=== PATIENT | male | born 1970 | race Caucasian/White ===

== ENCOUNTER → 2016-07-29 | Outpatient (CLI) | payer OTHER ==
--- NOTE | 2016-07-29 11:56 | XR ---
EXAMINATION TYPE: XR hand complete RT DATE OF EXAM: 07/29/2016 CLINICAL HISTORY: Foreign body hand over fifth digit recently removed TECHNIQUE: Frontal, lateral and oblique images of the right hand are obtained. COMPARISON: None. FINDINGS: There is no acute fracture/dislocation evident in the right hand. The joint spaces in the right hand appear within normal limits. The overlying soft tissue appears unremarkable without suspi cious radiodense foreign body identified. IMPRESSION: Unremarkable study.
== END | disposition home or self-care (01) ==
LOC: RADXRMAIN 11:35
PROVIDERS: ATTEND Emergency Medicine
DX: S60.551A Superficial foreign body of right hand, initial encounter (principal)

== ENCOUNTER → 2019-12-06 | Outpatient (CLI) | payer BC ==
--- NOTE | 2019-12-06 12:25 | XR ---
EXAMINATION TYPE: XR lumbar spine 2 or 3V DATE OF EXAM: 12/06/2019 COMPARISON: None HISTORY: Low back pain TECHNIQUE: Three-view lumbar spine FINDINGS: There 5 lumbar-type vertebral bodies. Pedicles are intact. There is loss of disc height L5- S1. Remaining disc heights are preserved. Vertebral body heights are preserved. Vascular calcificatio ns within the distal aorta. IMPRESSION: 1. Degenerative disc changes L5-S1
== END | disposition home or self-care (01) ==
LOC: RADXRMAIN 11:23
PROVIDERS: ATTEND Emergency Medicine
DX: M47.817 Spondylosis without myelopathy or radiculopathy, lumbosacral region (principal)
CPT/HCPCS: 72100

== ENCOUNTER 2020-11-26 06:19 | Inpatient (IN) | payer BC, OTHER ==
[2020-11-26] MEDS ORDERED: LORazepam 2 MG/ML INJ IV STA (06:45)
[2020-11-26] MEDS ORDERED: SODIUM CHLORIDE 0.9% 1,000 ML IV STA ×2 (06:45→08:15)
--- NOTE | 2020-11-26 06:48 | ED ---
General Adult HPI - General Chief complaint: Altered Mental Status Stated complaint: Altered mental status Time Seen by Provider: 11/26/20 06:33 Source: patient, RN notes reviewed Mode of arrival: ambulatory Limitations: no limitations - History of Present Illness Initial comments: 50-year-old male with a past medical history of hypertension presents to the emergency room for a chief complaint of confusion. reports she woke up this morning and patient was telling her he was mad because she had been whispering about him to someone. states that he was confused which is not normal for him. 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 States that he usually drinks 12-15 beers a day however since Tuesday has stopped drinking because of this new job. She states that he has not been urinating normally and it is much less than normal. She states she has also had a cough and cold. He has been diaphoretic. He has not been eating or drinking. Patient is alert and oriented. Patient has no other complaints at this time including shortness of breath, chest pain, abdominal pain, nausea or vomiting, headache, or visual changes. - Related Data Allergies Allergy/AdvReac Type Severity Reaction Status Date / Time No Known Allergies Allergy Verified 11/26/20 06:32 Review of Systems ROS Statement: Those systems with pertinent positive or pertinent negative responses have been documented in the HPI. ROS Other: All systems not noted in ROS Statement are negative. Past Medical History Past Medical History: Hypertension Additional Past Medical History / Comment(s): PVC History of Any Multi-Drug Resistant Organisms: None Reported Past Surgical History: No Surgical Hx Reported Past Psychological History: No Psychological Hx Reported Smoking Status: Never smoker Past Alcohol Use History: Daily, Heavy Past Drug Use History: None Reported General Exam Limitations: no limitations General appearance: alert, in no apparent distress Head exam: Present: atraumatic Eye exam: Present: normal appearance, PERRL, EOMI. Absent: scleral icterus, conjunctival injection ENT exam: Present: normal exam, mucous membranes moist Neck exam: Present: normal inspection, full ROM. Absent: tenderness Respiratory exam: Present: normal lung sounds bilaterally. Absent: respiratory distress, wheezes Cardiovascular Exam: Present: regular rate, normal rhythm, normal heart sounds GI/Abdominal exam: Present: soft, normal bowel sounds. Absent: distended, tenderness Skin exam: Present: diaphoretic Course Vital Signs 11/26/20 06:22 Temperature 98.7 F Pulse Rate 98 Respiratory 18 Rate Blood Pressure 145/102 O2 Sat by Pulse 98 Oximetry EKG Findings - EKG Comments: EKG Findings:: Normal sinus rhythm, ventricular rate 82, MN interval 140, QTC 434 Medical Decision Making - Medical Decision Making Vitals are stable. Patient is well-appearing however is diaphoretic. He is alert and oriented although slow to answer questions. CBC is unremarkable. CMP does reveal mild acidosis likely related to alcoholic ketosis. Magnesium 1.5, replaced. Patient started on CIWA protocol. Suspect that patient's delirium is related to alcohol withdrawal syndrome. Patient will need to be admitted. Case was discussed with Dr. amato who accepts admission. - Lab Data Result diagrams: 11/26/20 06:52 11/26/20 06:52 Lab Results 11/26/20 11/26/20 11/26/20 Range/Units 06:52 06:52 06:52 WBC 9.4 (3.8-10.6) k/uL RBC 4.27 L (4.30-5.90) m/uL Hgb 14.6 (13.0-17.5) gm/dL Hct 41.0 (39.0-53.0) % MCV 96.1 (80.0-100.0) fL MCH 34.1 (25.0-35.0) pg MCHC 35.5 (31.0-37.0) g/dL RDW 13.0 (11.5-15.5) % Plt Count 194 (150-450) k/uL MPV 7.7 Neutrophils % 70 % Lymphocytes % 18 % Monocytes % 8 % Eosinophils % 1 % Basophils % 1 % Neutrophils # 6.6 (1.3-7.7) k/uL Lymphocytes # 1.7 (1.0-4.8) k/uL Monocytes # 0.8 (0-1.0) k/uL Eosinophils # 0.1 (0-0.7) k/uL Basophils # 0.1 (0-0.2) k/uL Sodium 134 L (137-145) mmol/L Potassium 3.6 (3.5-5.1) mmol/L Chloride 100 (98-107) mmol/L Carbon Dioxide 19 L (22-30) mmol/L Anion Gap 15 mmol/L BUN 7 L (9-20) mg/dL Creatinine 0.78 (0.66-1.25) mg/dL Est GFR (CKD-EPI)AfAm >90 (>60 ml/min/1.73 sqM) Est GFR (CKD-EPI)NonAf >90 (>60 ml/min/1.73 sqM) Glucose 113 H (74-99) mg/dL Calcium 9.8 (8.4-10.2) mg/dL Magnesium 1.5 L (1.6-2.3) mg/dL Total Bilirubin 1.5 H (0.2-1.3) mg/dL AST 87 H (17-59) U/L ALT 38 (4-49) U/L Alkaline Phosphatase 42 (38-126) U/L Total Protein 8.4 H (6.3-8.2) g/dL Albumin 4.9 (3.5-5.0) g/dL Serum Alcohol <10 mg/dL Coronavirus (PCR) Not Detected (Not Detectd) Disposition Clinical Impression: Alcohol withdrawal syndrome, Delirium tremens, Hypomagnesemia Disposition: ADMITTED IP TO THIS HOSP Is patient prescribed a controlled substance at d/c from ED?: No Referrals: Nargis Modi III, MD [Primary Care Provider] - 1-2 days Time of Disposition: 08:12
[2020-11-26 07:05] LABS: Basophils # (A) 0.1 k/uL (0-0.2); Basophils % (A) 1 %; Eosinophils # (A) 0.1 k/uL (0-0.7); Eosinophils % (A) 1 %; HGB 14.6 gm/dL (13.0-17.5); Lymphocytes # (A) 1.7 k/uL (1.0-4.8); Lymphocytes % (A) 18 %; MCH 34.1 pg (25.0-35.0); MCHC 35.5 g/dL (31.0-37.0); MCV 96.1 fL (80.0-100.0); Mean Platelet Volume 7.7; Monocytes # (A) 0.8 k/uL (0-1.0); Monocytes % (A) 8 %; Neutrophils # (A) 6.6 k/uL (1.3-7.7); Neutrophils % (A) 70 %; Platelet Count 194 k/uL (150-450); RBC 4.27 m/uL (4.30-5.90); WBC 9.4 k/uL (3.8-10.6)
[2020-11-26 07:46] LABS: ALT 38 U/L (4-49); AST 87 U/L (17-59); African American GFR (CKD) >90 (>60 ml/min/1.73 sqM); Albumin 4.9 g/dL (3.5-5.0); Alcohol <10 mg/dL; Alkaline Phosphatase 42 U/L (38-126); Anion Gap 15 mmol/L; Blood Urea Nitrogen 7 mg/dL (9-20); Calcium 9.8 mg/dL (8.4-10.2); Carbon Dioxide 19 mmol/L (22-30); Chloride 100 mmol/L (98-107); Glucose 113 mg/dL (74-99); Magnesium 1.5 mg/dL (1.6-2.3); Non-African American GFR(CKD) >90 (>60 ml/min/1.73 sqM); Potassium 3.6 mmol/L (3.5-5.1); Sodium 134 mmol/L (137-145); Total Bilirubin 1.5 mg/dL (0.2-1.3); Total Protein 8.4 g/dL (6.3-8.2)
--- NOTE | 2020-11-26 07:49 | CT ---
EXAMINATION TYPE: CT brain wo con DATE OF EXAM: 11/26/2020 COMPARISON: None INDICATION: AMS DLP: 1119.4 mGycm, Automated exposure control for dose reduction was used. CONTRAST: None CT of the brain is performed utilizing 3 mm thick sections through the posterior fossa and 3 mm thick sections through the remaining calvarium. Study is performed within 24 hours of arrival to the hosp ital. No abnormal hyperdensity is present to suggest an acute intracranial hemorrhage. No mass lesion is evident. No acute infarcts are evident. Ventricles and sulci are appropriate for the patient age. There is an air-fluid level within the right maxillary sinus. Correlate for acute maxillary sinusitis . Left septal deviation is noted. Some mucosal thickening through scattered ethmoid air cells. Remain ing paranasal sinuses and mastoid air cells are clear. There is a soft tissue nodule in the subcutane ous tissues on the superior right vertex measuring 2.8 cm. This contains calcification. An additional nodule within the posterior mid subcutaneous tissue. IMPRESSIONS: 1. No acute intracranial process. 2. Subcutaneous nodules
--- NOTE | 2020-11-26 07:54 | XR ---
EXAMINATION TYPE: XR chest 2V DATE OF EXAM: 11/26/2020 COMPARISON: 09/12/2012 INDICATION: Cough TECHNIQUE: Frontal and lateral views of the chest are obtained. FINDINGS: The heart size is normal. The pulmonary vasculature is normal. The lungs are clear. There is some mild prominence of the small bowel loops within the abdomen. Reg elate for ileus. IMPRESSION: 1. No acute pulmonary process. 2. Consider ileus within the abdomen.
[2020-11-26] MEDS ORDERED: NALOXONE 0.4 MG/ML 1 ML VIAL IV PRN (08:12)
[2020-11-26] MEDS ORDERED: SODIUM CHLORIDE 0.9% 1,000 ML with MVI, ADULT NO.4 WITH VIT K 10 ML, THIAMINE 100 MG, F... IV ONE ×4 (08:13)
[2020-11-26] MEDS ORDERED: LORazepam 2 MG/ML INJ IV PRN ×3 (08:14)
[2020-11-26] MEDS ORDERED: SODIUM CHLORIDE 0.9% 1,000 ML IV SCH (08:15)
[2020-11-26] MEDS ORDERED: MAGNESIUM SULFATE-D5W PMX 1 GM in DEXTROSE/WATER 1 100ML.BAG IVPB STA (08:19)
[2020-11-26] MEDS ORDERED: MAGNESIUM SULFATE-D5W PMX 1 GM in DEXTROSE/WATER 1 100ML.BAG IVPB SCH (11:30)
[2020-11-26 13:14] VITALS: RESP 23
--- NOTE | 2020-11-26 13:28 | P.HPIM ---
History of Present Illness 50-year-old pleasant male came in with the alcohol withdrawal symptoms and patient was having hallucinations last night as per the sink staff. Patient was drinking about 12-15 beers however he stopped on Tuesday. Patient was bit anx ious lately because of lack of job for a long time and because of which he has been drinking. Patient is sitting at the Because of which patient quit drinking. Patient the didn't have any withdrawal symptoms since today morning at 6:30 AM patient received the last dose of Ativan at 6:30 AM. Patient is also hypomagnesemic magnesium was replaced and patient will be discharged on magnesium supplementation. REVIEW OF SYSTEMS: CONSTITUTIONAL: No fever, no malaise, no fatigue. HEENT: No recent visual problems or hearing problems. Denied any sore throat. CARDIOVASCULAR: No chest pain, orthopnea, PND, no palpitations, no syncope. PULMONARY: No shortness of breath, no cough, no hemoptysis. GASTROINTESTINAL: No diarrhea, no nausea, no vomiting, no abdominal pain. NEUROLOGICAL: No headaches, no weakness, no numbness. HEMATOLOGICAL: Denies any bleeding or petechiae. GENITOURINARY: Denies any burning micturition, frequency, or urgency. MUSCULOSKELETAL/RHEUMATOLOGICAL: Denies any joint pain, swelling, or any muscle pain. ENDOCRINE: Denies any polyuria or polydipsia. The rest of the 14-point review of systems is negative. PHYSICAL EXAMINATION: GENERAL: The patient is alert and oriented x3, not in any acute distress. Well developed, well nourished. HEENT: Pupils are round and equally reacting to light. EOMI. No scleral icterus. No conjunctival pallor. Normocephalic, atraumatic. No pharyngeal erythema. No thyromegaly. CARDIOVASCULAR: S1 and S2 present. No murmurs, rubs, or gallops. PULMONARY: Chest is clear to auscultation, no wheezing or crackles. ABDOMEN: Soft, nontender, nondistended, normoactive bowel sounds. No palpable organomegaly. MUSCULOSKELETAL: No joint swelling or deformity. EXTREMITIES: No cyanosis, clubbing, or pedal edema. NEUROLOGICAL: Gross neurological examination did not reveal any focal deficits. SKIN: No rashes. Assessment and plan Alcohol withdrawal: Patient last drink was about 3 days ago and do not expect any worsening withdrawals at this time. Patient Ativan requirements are not frequent patient will be discharged on as needed Ativan for alcohol withdrawal. -Hypovolemic hyponatremia patient received IV fluids -Hyperchloremic metabolic acidosis, there may be a competent of lactic acidosis as well patient received IV fluids as mentioned above -Mild acute alcoholic hepatitis -Incidental finding of the subcutaneous nodule on the computed tomography scan of the head no further intervention at this time. Past Medical History Past Medical History: Hypertension Additional Past Medical History / Comment(s): PVC History of Any Multi-Drug Resistant Organisms: None Reported Past Surgical History: No Surgical Hx Reported Past Psychological History: No Psychological Hx Reported Smoking Status: Never smoker Past Alcohol Use History: Daily, Heavy Past Drug Use History: None Reported Medications and Allergies Home Medications Medication Instructions Recorded Confirmed Type Atenolol [Tenormin] 100 mg PO DAILY 11/26/20 11/26/20 History LORazepam [Ativan] 1 mg PO QID PRN 3 Days #20 tab 11/26/20 Rx Lisinopril [Prinivil] 10 mg PO DAILY 11/26/20 11/26/20 History Magnesium Oxide [Mag-Oxide] 400 mg PO DAILY #20 tablet 11/26/20 Rx Omeprazole Magnesium [PriLOSEC OTC] 20 mg PO DAILY 11/26/20 11/26/20 History Simvastatin 40 mg PO DAILY 11/26/20 11/26/20 History Thiamine [Vitamin B-1] 100 mg PO BID-W/MEALS #30 tab 11/26/20 Rx Venlafaxine HCl [Effexor XR] 75 mg PO DAILY 11/26/20 11/26/20 History Allergies Allergy/AdvReac Type Severity Reaction Status Date / Time No Known Allergies Allergy Verified 11/26/20 09:35 Physical Exam Vitals: Vital Signs Temp Pulse Resp BP Pulse Ox 11/26/20 12:00 81 23 146/100 98 11/26/20 11:00 88 19 128/88 97 11/26/20 10:00 72 11 L 144/89 97 11/26/20 08:48 83 18 143/101 98 11/26/20 08:00 84 10 L 141/96 95 11/26/20 06:22 98.7 F 98 18 145/102 98 Intake and Output 11/25/20 11/26/20 11/26/20 22:59 06:59 14:59 Other: Weight 104.326 kg Results CBC & Chem 7: 11/26/20 06:52 11/26/20 06:52 Labs: Abnormal Lab Results - Last 24 Hours (Table) 11/26/20 11/26/20 Range/Units 06:52 06:52 RBC 4.27 L (4.30-5.90) m/uL Sodium 134 L (137-145) mmol/L Carbon Dioxide 19 L (22-30) mmol/L BUN 7 L (9-20) mg/dL Glucose 113 H (74-99) mg/dL Magnesium 1.5 L (1.6-2.3) mg/dL Total Bilirubin 1.5 H (0.2-1.3) mg/dL AST 87 H (17-59) U/L Total Protein 8.4 H (6.3-8.2) g/dL
--- NOTE | 2020-11-26 13:29 | P.DS ---
Providers Date of admission: 11/26/20 08:51 Attending physician: Papi Ardon MD Primary care physician: Nargis Modi [facility] Course: Refer to my history of present illness for further details Plan - Discharge Summary New Discharge Prescriptions: New LORazepam [Ativan] 1 mg PO QID PRN 3 Days #20 tab PRN Reason: Alcohol Withdrawal Magnesium Oxide [Mag-Oxide] 400 mg PO DAILY #20 tablet Thiamine [Vitamin B-1] 100 mg PO BID-W/MEALS #30 tab Continue Venlafaxine HCl [Effexor XR] 75 mg PO DAILY Lisinopril [Prinivil] 10 mg PO DAILY Atenolol [Tenormin] 100 mg PO DAILY Simvastatin 40 mg PO DAILY Omeprazole Magnesium [PriLOSEC OTC] 20 mg PO DAILY Discharge Medication List Atenolol [Tenormin] 100 mg PO DAILY 11/26/20 [History] LORazepam [Ativan] 1 mg PO QID PRN 3 Days #20 tab 11/26/20 [Rx] Lisinopril [Prinivil] 10 mg PO DAILY 11/26/20 [History] Magnesium Oxide [Mag-Oxide] 400 mg PO DAILY #20 tablet 11/26/20 [Rx] Omeprazole Magnesium [PriLOSEC OTC] 20 mg PO DAILY 11/26/20 [History] Simvastatin 40 mg PO DAILY 11/26/20 [History] Thiamine [Vitamin B-1] 100 mg PO BID-W/MEALS #30 tab 11/26/20 [Rx] Venlafaxine HCl [Effexor XR] 75 mg PO DAILY 11/26/20 [History] Follow up Appointment(s)/Referral(s): Nargis Modi III, MD [Primary Care Provider] - 3 Days Discharge Disposition: HOME SELF-CARE
[2020-11-26 14:11] VITALS: BP 150/79; PULSE 88; TEMP 98.8
[2020-11-26] MEDS ORDERED: THIAMINE 100 MG TAB PO SCH (17:30)
== END 2020-11-26 14:08 | disposition home or self-care (01) | DRG 897 ==
LOC: EC 06:19 → 5NMEDONC 08:51
PROVIDERS: ADMIT Internal Medicine; ATTEND Internal Medicine
DX: F10.231 Alcohol dependence with withdrawal delirium (principal); E87.1 Hypo-osmolality and hyponatremia; E87.2 Acidosis; I10 Essential (primary) hypertension; E83.42 Hypomagnesemia; E86.1 Hypovolemia; K70.10 Alcoholic hepatitis without ascites; Z20.822 Contact with and (suspected) exposure to COVID-19; Z79.899 Other long term (current) drug therapy; R22.0 Localized swelling, mass and lump, head
CPT/HCPCS: 70450; 71046; 80053; 80320; 83735; 85025; 87635; 93005; 96361; 96374; 99285

== ENCOUNTER → 2022-12-28 | Outpatient (CLI) | payer BC ==
[2022-12-28 11:38] LABS: ALT 54 U/L (10-49); AST 27 U/L (14-35); Albumin 4.7 d/dL (3.8-4.9); Albumin/Globulin Ratio 1.81 Ratio (1.60-3.17); Alkaline Phosphatase 40 U/L (41-126); BUN/Creat Ratio 16.36 Ratio (12.00-20.00); Calcium 9.7 mg/dL (8.7-10.3); Carbon Dioxide 25.7 mmol/L (21.6-31.8); Chloride 100 mmol/L (96-109); Chol/HDL Ratio 7.37 Ratio; Globulin 2.6 d/dL (1.6-3.3); Glucose 149 mg/dL (70-110); Potassium 4.3 mmol/L (3.5-5.5); Sodium 138 mmol/L (135-145); Total Bilirubin 0.4 mg/dL (0.3-1.2); Total Protein 7.3 d/dL (6.2-8.2)
== END | disposition home or self-care (01) ==
LOC: LABWHC1 07:08
PROVIDERS: ATTEND Nurse Practitioner
DX: Z00.00 Encounter for general adult medical examination without abnormal findings (principal); Z12.5 Encounter for screening for malignant neoplasm of prostate; I10 Essential (primary) hypertension; F41.8 Other specified anxiety disorders
CPT/HCPCS: 80061; 80053; 84443; 83721; 36415; G0103

== ENCOUNTER 2023-07-22 06:03 | Day surgery (SDC) | payer BC, OTHER ==
[~2023-07-22 06:03] MED LIST: Pre Op ABX Message 1 EACH MISC MISCELLANE ONE
[2023-07-22] MEDS ORDERED: ONDANSETRON 4 MG/2 ML VIAL IVP ONE (06:14)
[2023-07-22] MEDS ORDERED: DEXAMETHASONE SOD PHOSPHATE 4 MG/ML 1 ML VIAL IV ONE (06:14)
[2023-07-22] MEDS: LACTATED RINGERS 1,000 ML IV SCH (06:42)
[2023-07-22] MEDS: DEXAMETHASONE SOD PHOSPHATE 4 MG/ML 1 ML VIAL IVP ONE (07:00)
[2023-07-22] MEDS ORDERED: fentaNYL (PF) 50 MCG/ML 2 ML AMP IV PRN (07:00)
[2023-07-22] MEDS: ONDANSETRON 4 MG/2 ML VIAL IVP ONE (07:00)
[2023-07-22] MEDS: MIDAZOLAM 2 MG/2 ML VIAL IVP ONE (07:17)
[2023-07-22] MEDS: fentaNYL (PF) 50 MCG/ML 2 ML AMP IVP ONE (07:17)
[2023-07-22] MEDS ORDERED: TRANEXAMIC 1,000 MG/100ML-NACL PREMIX BAG ONE (07:27)
[2023-07-22] MEDS ORDERED: fentaNYL (PF) 50 MCG/ML 2 ML AMP ONE (07:27)
[2023-07-22] MEDS ORDERED: KETOROLAC 30 MG/ML 1 ML VIAL ONE (07:27)
[2023-07-22] MEDS ORDERED: GLYCOPYRROLATE 0.2 MG/ML 2 ML VIAL ONE (07:27)
[2023-07-22] MEDS ORDERED: LIDOCAINE 1% INJ 10MG/ML (20 ML MDV) ONE (07:27)
[2023-07-22] MEDS ORDERED: SUCCINYLCHOLINE CHLORIDE 200 MG/10 ML VIAL IV ONE (07:27)
[2023-07-22] MEDS ORDERED: ROCURONIUM 10 MG/ML (5 ML VIAL) IV ONE (07:27)
[2023-07-22] MEDS ORDERED: HYDROmorphone (PF) 1 MG/ML ONE (07:27)
[2023-07-22] MEDS ORDERED: ceFAZolin 1 GM/50 ML BAG (PMX) ONE (07:27)
[2023-07-22] MEDS ORDERED: NEOSTIGMINE 1 MG/ML 10 ML VIAL ONE (07:27)
[2023-07-22] MEDS ORDERED: ROPIVACAINE 5 MG/ML 30 ML VIAL ONE (07:27)
[2023-07-22] MEDS ORDERED: MIDAZOLAM 2 MG/2 ML VIAL ONE (07:27)
[2023-07-22] MEDS ORDERED: PROPOFOL 10 MG/ML 20 ML VIAL IV ONE (07:27)
[2023-07-22] MEDS: SODIUM CHLORIDE 0.9% 100 ML with ceFAZolin 2,000 MG IV ONE (07:30)
--- NOTE | 2023-07-22 09:04 | P.OP ---
Date of Procedure: 07/22/23 Preoperative Diagnosis: left knee full-thickness patellar tendon rupture Postoperative Diagnosis: same Procedure(s) Performed: open repair left patellar tendon rupture ( 4 strand transosseous repair) Anesthesia: MI, [facility] Surgeon: Logan Mar [employer] #1: Vaibhav Najera [employer] #2: Maude Hopper IV fluids (ml): 500 Pathology: none sent Condition: stable Disposition: PACU Indications for Procedure: the patient is very pleasant relatively healthy 53-year-old male who sustained an isolated injury to his left knee while at work. He was seen in the office and there was clinical suspicion for a patellar tendon rupture. He had an MRI to both confirm a patellar tendon rupture, evaluate the quality of the soft tissue, and rule out other associated injuries. The patient's MRI showed a full-thickness and complete rupture of the patellar tendon off the inferior pole of the patella. I met with the patient and his to discuss treatment options. I recommended an open repair to restore function of his extensor mechanism. We discussed the potential risks and complications of the surgical procedure and recovery at length. Risks discussed include but are certainly not limited to risks from anesthesia, superficial or deep infection, delayed wound healing, damage to local blood vessels or nerves, rerupture of the patellar tendon and or quadriceps tendon, stiffness, extensor lag, and inability to regain preinjury level of function, posttraumatic arthritis, fracture, need for further surgery, DVT, PE, other medical complications, generalized to satisfaction surgical outcome, and possibly loss of life or limb. The patient and his voiced her understanding of these potential complications while also acknowledging the risk of less common complications. They provided both her verbal and written consent to go forward with surgery. Operative Findings: full-thickness rupture of the patellar tendon off the inferior pole of the patella. There is diffuse tendinosis of the patellar tendon and quadriceps tendon. Description of Procedure: the patient was identified in preoperative holding and the correct left leg was marked with my initials. I reviewed the consent form with the patient and his . A block was given by anesthesia. The patient was then brought back to the operating room. He was positioned on the OR table where a general anesthetic, preoperative antibiotics, and tranexamic acid were given. A tourniquet was applied to the proximal aspect of the left leg was not used during the procedure. The left leg was then prepped and draped in the standard sterile fashion. Prior to starting surgery timeout was performed identifying the correct patient, operative extremity, and procedure. I began by making a straight anterior incision to the knee starting 2 fingerbreadths above the patella and extending to the tibial tubercle. Skin incision was made with a scalpel and dissection was carried down sharply through the first fascial layer. Immediately upon dissecting through the fascia a full- thickness patellar tendon rupture was identified. Medial and lateral subfascial flaps were elevated. Consolidating hematoma was irrigated from the joint. On inspection there was a full-thickness rupture from the inferior pole the patella and complete rupture of the medial retinaculum. The joint was thoroughly irrigated. The inferior pole of the patella was roughened to create a bony bed or healing. Using a #5 Ethibond a 4 strand repair using a Krakw type stitch was performed medially and laterally. Both suture repairs had excellent grab of the patellar tendon. I then placed 3 equally spaced drill holes from inferior to superior through the patella using a 2.5 mm drill bit for the central tunnel and a 2.0 mm drill bit for the medial and lateral tunnels. Orientation of the tunnels was confirmed using fluoroscopy while drilling. I then shuttled the sutures from distal to proximal through the distal bone tunnels. With the knee in extension both limbs were tightened over the superior pole of the patella and tied creating a robust repair. The medial retinaculum was then repaired using #2 Ethibond. The patient had a leblanc repair with complete caodaism of the extensor mechanism. The wound was then thoroughly irrigated and closed in layers. At the completion of surgery all instrument, sponge, and sharp counts were correct. A sterile dressing was applied followed by a web roll and Tulio wrap. The patient was then placed in a knee immobilizer. He was awoken from his anesthetic, transferred from the OR table to a gurney, and brought to recovery having tolerated the procedure well. Vaibhav Najera PA-C and Maude Hopper PA-C were required a skilled assistance due to the complexity of surgery for patient positioning, draping, exposure, retractor, application of dressing, and closure of wound. Plan: The patient is going to discharge home as an outpatient. He can weight- bear as tolerated in a knee immobilizer and using crutches. He can take his Tulio wrap and web roll off in 2 days. He needs to be in the immobilizer at all times except for showering. We will see him in the office in 2 weeks for a wound check. He does not need x-rays at that time. I plan on keeping him immobilized in a knee immobilizer for 4 weeks at which point we will commence gentle range of motion in a hinged knee brace.
[2023-07-22] MEDS: LACTATED RINGERS 1,000 ML IV ONE (09:06)
--- NOTE | 2023-07-22 10:06 | XR ---
Fluoroscopy INDICATION: Pain FINDINGS: Fluoroscopy time: 15 seconds. Total dose area product (DAP) in uGy*m?, mGy*cm? (or similar): 0.4519 Images obtained: 5. IMPRESSION: 1. Documentation of fluoroscopy.
[2023-07-22] MEDS: HYDROmorphone 0.5 MG/0.5 ML SYRINGE IM PRN (10:11)
[2023-07-22 10:34] VITALS: TEMP 96.8
[2023-07-22] MEDS: oxyCODONE-APAP 5-325MG 1 EACH TAB PO PRN (11:24)
--- NOTE | 2023-07-22 11:37 | P.ANPRN ---
Procedure Note - Anesthesia - Nerve Block Performed Left Adductor Canal Single Time Out Performed: Yes (0716) Date of Procedure: 07/22/23 Procedure Start Time: 07:17 Procedure Stop Time: 07:21 Location of Patient: PreOp Indication: Acute Post-Operative Pain, Requested by Surgeon Specifically requested for management of pain by DrMaverick: Logan Mar Sedation Type: Sedate with meaningful contact maintained Preparation: Sterile Prep Position: Supine Catheter: None Needle Types: Pajunk Needle Gauge: 21 Ultrasound used to visualize needle placement: Yes Ultrasound used to observe medication spread: Yes Injectate: 0.5% Ropivacaine (see comment for volume) (30cc) Blood Aspirated: No Pain Paresthesia on Injection Noted: No Resistance on Injection: Normal Image Stored and Saved: Yes Events: Uneventful and Well Tolerated
[2023-07-22 12:27] VITALS: BP 149/87; PULSE 87; RESP 16
== END 2023-07-22 12:15 | disposition home or self-care (01) ==
LOC: OR 06:03
PROVIDERS: ATTEND Orthopaedic Surgery
DX: S86.812A Strain of other muscle(s) and tendon(s) at lower leg level, left leg, initial encounter (principal); G89.18 Other acute postprocedural pain; I10 Essential (primary) hypertension; E78.5 Hyperlipidemia, unspecified; K21.9 Gastro-esophageal reflux disease without esophagitis; Z87.891 Personal history of nicotine dependence; Z79.899 Other long term (current) drug therapy; Z88.8 Allergy status to other drugs, medicaments and biological substances; X58.XXXA Exposure to other specified factors, initial encounter
CPT/HCPCS: 97161; 64447; 73560; 27380; J2250; J0330; J1100; J2710; J2405; J0690 ×2; J2001; J3010; J1885; J1170 ×2; J2795; J2704

== ENCOUNTER 2024-09-18 09:16 | Day surgery (SDC) | payer BC ==
[2024-09-18] MEDS ORDERED: MIDAZOLAM 2 MG/2 ML VIAL IV PRN (09:38)
[2024-09-18] MEDS ORDERED: fentaNYL (PF) 50 MCG/ML 2 ML AMP IV PRN (09:38)
[2024-09-18] MEDS ORDERED: SCOPOLAMINE 1 MG/72 HR PATCH TRANSDERM ONE (09:38)
[2024-09-18] MEDS: IV FLUID CONTINUATION 1,000 ML IV ONE (09:51)
[2024-09-18] MEDS: ACETAMINOPHEN TAB 500 MG TAB PO PRN (10:02)
[2024-09-18] MEDS: ONDANSETRON 4 MG/2 ML VIAL IVP ONE (10:03)
[2024-09-18] MEDS: LACTATED RINGERS 1,000 ML IV SCH (10:03)
[2024-09-18] MEDS: DEXAMETHASONE SOD PHOSPHATE 4 MG/ML 1 ML VIAL IV ONE (10:03)
[2024-09-18] MEDS: HEPARIN SODIUM,PORCINE 5,000 UNIT/ML 1 ML VIAL SQ PRN (10:03)
[2024-09-18] MEDS ORDERED: ROCURONIUM 10 MG/ML (5 ML VIAL) IV ONE (10:46)
[2024-09-18] MEDS ORDERED: GLYCOPYRROLATE 0.2 MG/ML 2 ML VIAL ONE (10:46)
[2024-09-18] MEDS ORDERED: LIDOCAINE 1% INJ 10MG/ML (20 ML MDV) ONE (10:46)
[2024-09-18] MEDS ORDERED: PROPOFOL 10 MG/ML 20 ML VIAL IV ONE (10:46)
[2024-09-18] MEDS ORDERED: NEOSTIGMINE 1 MG/ML 10 ML VIAL ONE (10:46)
[2024-09-18] MEDS ORDERED: ePHEDrine 50 MG/ML 1 ML VIAL ONE (10:46)
[2024-09-18] MEDS ORDERED: fentaNYL (PF) 50 MCG/ML 2 ML AMP ONE (10:46)
[2024-09-18] MEDS ORDERED: SUCCINYLCHOLINE CHLORIDE 200 MG/10 ML VIAL IV ONE (10:46)
[2024-09-18] MEDS ORDERED: MIDAZOLAM 2 MG/2 ML VIAL ONE (10:46)
[2024-09-18] MEDS: LIDOCAINE 1%-EPI 1:100,000 20 ML VIAL SQ ONE (11:29)
--- NOTE | 2024-09-18 11:33 | P.OP ---
Date of Procedure: 09/18/24 Preoperative Diagnosis: Sebaceous cyst scalp x 2 Postoperative Diagnosis: Same Procedure(s) Performed: Excision of sebaceous cyst of scalp x 2 Anesthesia: VIGNESHA Surgeon: Gavin Martinez Estimated Blood Loss (ml): 5 Pathology: other (Sebaceous cyst) Condition: stable Disposition: PACU Description of Procedure: Patient placed the op table in the lateral position. He received general anesthesia. His scalp was prepped and draped you sterile fashion. Patient had a 8 cm sebaceous cyst on the superior portion of the scalp. The skin was incised and using blunt sharp dissection with cautery the cyst was excised. It was sent to pathology. The skin was closed with 3-0 Monocryl suture. Next a 5 cm sebaceous cyst of the posterior scalp was excised. The skin was incised. And then using blunt and sharp electrocautery the cyst was dissected free cytopathology. The skin was closed with interrupted 3-0 Monocryl suture. D she was sent to recovery in stable condition.
[2024-09-18 11:49] VITALS: TEMP 97.4
[2024-09-18 12:45] VITALS: BP 102/56; PULSE 72; RESP 14
== END 2024-09-18 13:05 | disposition home or self-care (01) ==
LOC: OR 09:16
PROVIDERS: ATTEND Surgery
DX: L72.11 Pilar cyst (principal); I10 Essential (primary) hypertension; E78.5 Hyperlipidemia, unspecified; F41.9 Anxiety disorder, unspecified; F32.A Depression, unspecified; I49.3 Ventricular premature depolarization; K21.9 Gastro-esophageal reflux disease without esophagitis; Z79.899 Other long term (current) drug therapy; Z88.5 Allergy status to narcotic agent; Z88.6 Allergy status to analgesic agent
CPT/HCPCS: 88304; 11426; J2250; J0330; J1644; J1100; J2710; J0690; J2405; J2003; J3010; J2704; J1596